=== PATIENT | male | born 1940 | race Caucasian/White ===

== ENCOUNTER → 2017-04-21 07:06 | Outpatient (CLI) | payer MEDICARE, SELFPAY ==
--- NOTE | 2017-04-21 07:12 | CT_ITS ---
STUDY: CT ABDOMEN AND PELVIS WITH CONTRAST REASON FOR EXAM: Male, 76 years old. Left lower quadrant pain and swelling following coughing. Ventral hernia. RADIATION DOSAGE (If Supplied By Facility): CTDIvol = ( 18.28 ) mGy, DLP = ( 1311.05 ) mGycm TECHNIQUE: Transaxial images were obtained from the dome of the diaphragm to the symphysis pubis with oral contrast. 100mL ml of Isovue 300 contrast was administered. Sagittal and coronal images were reconstructed. Individualized dose optimization techniques were used for this CT. COMPARISON: Comparison is made with prior study dated December 04, 2015. FINDINGS: Stable mild degree of increased markings at the lung bases suggestive of scarring. Scattered calcified granulomas in the right lower lobe. A dual-chamber pacemaker is seen. Normal liver. There are surgical clips in the gallbladder fossa consistent with a prior cholecystectomy. There are multiple benign calcified granulomata of the spleen. Normal pancreas. Normal bilateral adrenal glands. Normal right kidney. Normal left kidney. Normal visualized stomach. Normal small intestine. There are multiple colonic diverticula consistent with diverticulosis. There is a 2.9 cm rounded fat containing density in the antimesenteric side of the peritoneal fat adjacent to the sigmoid colon in the left hemipelvis. There is also evidence of a 1.5 cm rounded density with peripheral calcification along the antimesenteric side of the sigmoid colon. This may represent epiploic appengitis.. The appendix is visualized and appears normal. There is diffuse atherosclerotic calcification of the abdominal aorta. 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 This measures 3.5 cm in transverse dimension. This is essentially unchanged. Normal inferior vena cava. Normal retroperitoneum. Normal urinary bladder. There are prostatic calcifications. Small bilateral inguinal hernias containing fat. Normal osseous structures. CT/Abdomen/Pelvis WITH Contrast IMPRESSION: Stable examination. The previously seen calculus at the base of the urinary bladder is not seen at this time. Electronically Signed: Ricardo Chase MD at 9:44 EST Tel [phone], Service support ,
[2017-04-21 07:50] LABS: CREATININE FINGERSTICK 1.2 mg/dL (0.70-1.30); EGFR FINGERSTICK > 60.0000 mL/min (>60)
== END ==
PROVIDERS: Family Provider Family Medicine Geriatric Medicine; PCP Family Medicine Geriatric Medicine; Visit Provider Family Medicine Geriatric Medicine
DX: K43.9 Ventral hernia without obstruction or gangrene (principal)
CPT/HCPCS: 74177; Q9967

== ENCOUNTER → 2017-06-07 08:53 | Outpatient (CLI) | payer MEDICARE, SELFPAY ==
[2017-06-07 13:24] LABS: Absolute Lymphocyte Count 1.33 X10^3/ul (0.83-4.51); Absolute Neutrophil Count 3.7 X10^3/uL (2.0-7.7); Basophil# 0.03 X10^3/uL; Basophil% 0.5 % (0-1); Eosinophils% 1.7 % (0-5); Hematocrit 44.6 % (40-54); Hemoglobin 14.6 g/dl (13.0-16.5); Lymphocyte # 1.33 X10^3/ul (4.0); Mean Corp Hgb Conc 32.7 g/gl (32-36); Mean Corpuscular Hgb 30.2 pg (27.0-32.0); Mean Corpuscular Volume 92.1 fL (80-94); Mean Platelet Vol. 10.4 fl (6.2-12.0); Monocyte# 0.64 X10^3/uL; Monocyte% 11.1 % (0-10); Neutrophil # 3.65 X10^3/uL (2.7-7.7); Neutrophil % 63.2 % (47-70); Platelet Count 188 K/mm3 (150-450); RBC Distribution Width CV 14.3 % (11.6-14.6); RBC Distribution Width SD 46.8 fl (35.1-43.9); Red Blood Count 4.84 M/mm3 (4.6-6.2); White Blood Count 5.8 K/mm3 (4.4-11.0)
[2017-06-07 13:36] LABS: POSITIVE COUNT NO; POSITIVE DIFFERENTIAL NO; POSITIVE MORPHOLOGY NO
[2017-06-07 13:54] LABS: ALB/GLOB Ratio 1.2 RATIO (0.9-2.4); AST(SGOT) 20 U/L (15-37); Alanine Aminotransfer ALT/SGPT 28 U/L (16-61); Albumin, Serum 3.5 g/dL (3.2-5.0); Alkaline Phosphatase 58 U/L (45-117); Anion Gap 7 (5-15); BUN 11 mg/dL (7-18); Calcium,Total 8.7 mg/dL (8.5-10.1); Chloride 104 mmol/L (98-107); Cholesterol 112 mg/dL (200); Creatinine, Serum 0.85 mg/dL (0.70-1.30); EST Glomerular Filtration Rate 93 mL/min (>60); Est Glom Filt Rate - Afr Amer 113 mL/min (>60); Globulin 2.8 g/dL (2.2-4.2); Glucose 100 mg/dL (74-106); High Density Lipoprotein 56 mg/dL; Potassium 4.7 mmol/L (3.5-5.1); Protein, Total 6.3 g/dL (6.4-8.2); Sodium Level 140 mmol/L (136-145); Thyroid Stim Hormone (TSH) 0.87 uIU/mL (0.358-3.74); Triglycerides 81 mg/dL; Very Low Density Lipoprotein 16 mg/dL (5-40)
== END ==
PROVIDERS: Family Provider Family Medicine Geriatric Medicine; PCP Family Medicine Geriatric Medicine; Visit Provider Family Medicine Geriatric Medicine
DX: E11.9 Type 2 diabetes mellitus without complications (principal); E23.6 Other disorders of pituitary gland; E78.4 Other hyperlipidemia; I10 Essential (primary) hypertension
CPT/HCPCS: 36415; 80053; 80061; 84403; 84443; 85025

== ENCOUNTER → 2017-12-06 11:40 | Outpatient (CLI) | payer MEDICARE, SELFPAY ==
[2017-12-06 12:35] LABS: Absolute Lymphocyte Count 1.35 X10^3/ul (0.83-4.51); Absolute Neutrophil Count 3.8 X10^3/uL (2.0-7.7); Basophil# 0.03 X10^3/uL; Basophil% 0.5 % (0-1); Eosinophil# 0.13 X10^3/uL; Eosinophils% 2.3 % (0-5); Hemoglobin 14.6 g/dl (13.0-16.5); Lymphocyte # 1.35 X10^3/ul (4.0); Lymphocyte % 23.4 % (19-41); Mean Corp Hgb Conc 32.4 g/gl (32-36); Mean Corpuscular Hgb 29.8 pg (27.0-32.0); Mean Corpuscular Volume 91.8 fL (80-94); Mean Platelet Vol. 10.4 fl (6.2-12.0); Monocyte# 0.45 X10^3/uL; Monocyte% 7.8 % (0-10); Neutrophil # 3.78 X10^3/uL (2.7-7.7); Neutrophil % 65.5 % (47-70); Platelet Count 213 K/mm3 (150-450); RBC Distribution Width CV 13.6 % (11.6-14.6); White Blood Count 5.8 K/mm3 (4.4-11.0)
[2017-12-06 12:36] LABS: POSITIVE COUNT NO; POSITIVE DIFFERENTIAL NO; POSITIVE MORPHOLOGY NO
[2017-12-06 13:10] LABS: ALB/GLOB Ratio 1.2 RATIO (0.9-2.4); AST(SGOT) 19 U/L (15-37); Alanine Aminotransfer ALT/SGPT 26 U/L (16-61); Albumin, Serum 3.4 g/dL (3.2-5.0); Alkaline Phosphatase 67 U/L (45-117); Anion Gap 8 (5-15); BUN 11 mg/dL (7-18); BUN/Creat Ratio 11.7 RATIO (10-20); Calcium,Total 8.6 mg/dL (8.5-10.1); Chloride 104 mmol/L (98-107); Cholesterol 159 mg/dL (200); Creatinine, Serum 0.94 mg/dL (0.70-1.30); EST Glomerular Filtration Rate 82 mL/min (>60); Est Glom Filt Rate - Afr Amer 100 mL/min (>60); Globulin 2.8 g/dL (2.2-4.2); Glucose 164 mg/dL (74-106); High Density Lipoprotein 48 mg/dL; PSA,Total - Annual Screen 1.05 ng/mL (0.00-4.00); Potassium 4.4 mmol/L (3.5-5.1); Protein, Total 6.2 g/dL (6.4-8.2); Sodium Level 138 mmol/L (136-145); Thyroid Stim Hormone (TSH) 1.77 uIU/mL (0.358-3.74); Triglycerides 139 mg/dL; Very Low Density Lipoprotein 28 mg/dL (5-40)
[2017-12-06 13:11] LABS: Vitamin D,25 Hydroxy 20.8 ng/mL (29.95-100.01)
== END ==
PROVIDERS: Family Provider Family Medicine Geriatric Medicine; PCP Family Medicine Geriatric Medicine; Visit Provider Family Medicine Geriatric Medicine
DX: E11.9 Type 2 diabetes mellitus without complications (principal); I10 Essential (primary) hypertension; E78.4 Other hyperlipidemia; E23.6 Other disorders of pituitary gland; E55.9 Vitamin D deficiency, unspecified; Z12.5 Encounter for screening for malignant neoplasm of prostate
CPT/HCPCS: 36415; 80053; 80061; 82306; 84153; 84403; 84443; 85025; G0103

== ENCOUNTER → 2018-03-08 07:35 | Outpatient (CLI) | payer MEDICARE, SELFPAY ==
[2018-02-27 08:59] VITALS: BMI 35.8
--- NOTE | 2018-03-08 07:36 | ECHOD_ITS ---
Reason For Study: S/P CABG Procedure This was a 2D Doppler, Color Flow transthoracic echocardiogram. Exam performed in department. Left Ventricle Normal LV size. Moderate concentric left ventricular hypertrophy. Moderate global left ventricular systolic dysfunction. The estimated ejection fraction is 40 %. There is mild to moderate global hypokinesis of the left ventricle. Mitral Valve There is moderate mitral annular calcification. Mild-Moderate (1-2+) eccentric mitral valve insufficiency. Tricuspid Valve Normal tricuspid valve. Mild (1+) tricuspid valve insufficiency. Pulmonary artery systolic pressure is 35 mmHg. Aortic Valve Trisinus/trileaflet aortic valve. Pulmonic Valve Normal pulmonic valve. Great Vessels Normal aortic root. Pericardium/Pleural No pericardial effusion. MMode/2D Measurements & Calculations LVIDd: 4.9 cm IVSd: 1.2 cm LVOT diam: 2.0 cm LVIDs: 4.3 cm LVPWd: 1.3 cm LVOT area: 3.2 cm2 RVDd: 4.2 cm FS: 12.3 % Ao root diam: 3.7 cm LAV(MOD-bp): 50.3 ml LVAd ap4: 39.3 cm2 LAV(MOD-bp) Indexed: 21.7 ml/m2 EDV(MOD-sp4): 138.0 ml LAV(MOD-sp2): 62.3 ml EDV(sp4-el): 145.5 ml LAV(MOD-sp4): 40.2 ml LVAs ap4: 28.4 cm2 ESV(MOD-sp4): 81.8 ml ESV(sp4-el): 85.3 ml EF(MOD-sp4): 40.7 % EF(sp4-el): 41.3 % SV(MOD-sp4): 56.1 ml SV(sp4-el): 60.1 ml LA A4 area: 16.4 cm2 LA dimension(2D): 4.2 cm RA A4 area: 14.4 cm2 Time Measurements MV dec time: 0.23 sec Doppler Measurements & Calculations MV E max hira: 93.2 cm/sec Lat Peak E' Hira: 8.1 cm/sec Med Peak E' Hira: 4.5 cm/sec MV A max hira: 147.9 cm/sec E/E' lat: 11.5 E/E' med: 20.6 MV E/A: 0.63 Ao V2 max: 243.9 cm/sec LV V1 max: 116.1 cm/sec SV(LVOT): 101.6 ml Ao max P.8 mmHg LV V1 max P.4 mmHg Ao V2 mean: 181.0 cm/sec LV V1 mean P.0 mmHg Ao mean P.2 mmHg LV V1 mean: 81.5 cm/sec Ao V2 VTI: 67.6 cm LV V1 VTI: 31.8 cm KWAN(I,D): 1.5 cm2 KWAN(V,D): 1.5 cm2 PA V2 max: 112.2 cm/sec TR max hira: 277.6 cm/sec TR max P.9 mmHg Interpretation Summary Normal LV size. Moderate concentric left ventricular hypertrophy. Moderate global left ventricular systolic dysfunction. The estimated ejection fraction is 40 %. There is mild to moderate global hypokinesis of the left ventricle. Mild-Moderate (1-2+) eccentric mitral valve insufficiency. Mild (1+) tricuspid valve insufficiency. Pulmonary artery systolic pressure is 35 mmHg. Ordering Physician: Marlon Yen Referring Physician: MOR ALVARADO Performed By: Tiffanie Rodriguez RDCS
--- OUTSIDE RECORDS SUMMARY | 2018-04-24 00:47 | XMS RPT_ITS ---
:1940 Author Organization OHIP Care Team Providers Name Role Phone Marlon Yen Attending Unavailable Yovana, Marlon Referring Unavailable Yusef, Mor Chi Primary Care Unavailable Yovana, Marlon Consulting Unavailable Yusef, Mor Chi Attending Unavailable Yusef, Mor Chi Primary Care Unavailable Yusef, Mor Chi Referring Unavailable Yusef, Mor Chi Attending Unavailable Yusef, Mor Chi Primary Care Unavailable Lyndsey Ceballos Attending Unavailable Bre Martínez Attending Unavailable Yusef, Mor Chi Referring Unavailable Yusef, Mor Chi Primary Care Unavailable Yusef, Mor Chi Attending Unavailable Yusef, Mor Chi Primary Care Unavailable Yovana, [place] Attending Unavailable Yusef, Mor Chi Referring Unavailable Yovana, [place] Attending Unavailable Yovana, [place] Referring Unavailable Yusef, Mor Chi Primary Care Unavailable PROBLEMS PROBLEMS DATE TYPE CONDITION / CODE ATTENDING STATUS SOURCE 03/08/2018 Unknown I25.10 - Marlon Yen Active [facility] Atherosclerotic heart [facility] disease of [facility] coronary artery Repository without angina pectoris / I25.10(ICD-10) 12/06/2017 Unknown E11.9 - Type 2 Yusef, Mor Chi Active [facility] diabetes mellitus [facility] without complications Hospital / E11.9(ICD-10) Repository 12/06/2017 Unknown 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, 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 / Hospital E23.6(ICD-10) Repository 12/06/2017 Unknown E55.9 - Vitamin D Yusef, Mor Chi Active [facility] deficiency, Community unspecified / Hospital E55.9(ICD-10) Repository 12/06/2017 Unknown E78.4 - Other Yusef, Mor Chi Active [facility] hyperlipidemia / Community E78.4(ICD-10) Hospital Repository 12/06/2017 Unknown I10 - Essential Yusef, Mor Chi Active [facility] (primary) Community hypertension / Hospital I10(ICD-10) Repository 12/06/2017 Unknown Z12.5 - Encounter for Yusef, Mor Chi Active [facility] screening for [facility] malignant neoplasm of Hospital prostate / Repository Z12.5(ICD-10) PROCEDURES PROCEDURES No Procedure Records FoundRESULTS RESULTS ECHOCARDIOGRAM COMPLETE Observed: 03/08/2018 Status: F Source: [facility] 1:51 PM [facility] REPOSITORY [facility] Cardi[facility] Services [address] [place] [id number] Echo Complete 03/08/18 0758 MR#: [id number] Acct: [id number] Name: SERVANDO TRUONG Rep #: [id number] : 1940 77 From: Marlon Yen MD Attending Dr: Marlon Yen MD Status: REG CLI Ordering Dr: Marlon Yen MD Date: 03/08/18 Location: [facility] Sex: M C Admitted: Reason For Study: S/P CABG Procedure This was a 2D Doppler, Color Flow transthoracic echocardiogram. Exam performed in department. Left Ventricle Normal LV size. Moderate concentric left ventricular hypertrophy. Moderate global left ventricular systolic dysfunction. The estimated ejection fraction is 40 %. There is mild to moderate global hypokinesis of the left ventricle. Mitral Valve There is moderate mitral annular calcification. Mild-Moderate (1-2+) eccentric mitral valve insufficiency. Tricuspid Valve Normal tricuspid valve. Mild (1+) tricuspid valve insufficiency. Pulmonary artery systolic pressure is 35 mmHg. Aortic Valve Trisinus/trileaflet aortic valve. Pulmonic Valve Normal pulmonic valve. Great Vessels Normal aortic root. Pericardium/Pleural No pericardial effusion. MMode/2D Measurements AND Calculations LVIDd: 4.9 cm IVSd: 1.2 cm LVOT diam: 2.0 cm LVIDs: 4.3 cm LVPWd: 1.3 cm LVOT area: 3.2 cm2 RVDd: 4.2 cm FS: 12.3 % Ao root diam: 3.7 cm LAV(MOD-bp): 50.3 ml LVAd ap4: 39.3 cm2 LAV(MOD-bp) Indexed: 21.7 ml/m2 EDV(MOD-sp4): 138.0 ml LAV(MOD-sp2): 62.3 ml EDV(sp4-el): 145.5 ml LAV(MOD-sp4): 40.2 ml LVAs ap4: 28.4 cm2 ESV(MOD-sp4): 81.8 ml ESV(sp4-el): 85.3 ml EF(MOD-sp4): 40.7 % EF(sp4-el): 41.3 % SV(MOD-sp4): 56.1 ml SV(sp4-el): 60.1 ml LA A4 area: 16.4 cm2 LA dimension(2D): 4.2 cm RA A4 area: 14.4 cm2 Time Measurements MV dec time: 0.23 sec Doppler Measurements AND Calculations MV E max hira: 93.2 cm/sec Lat Peak E' Hira: 8.1 cm/sec Med Peak E' Hira: 4.5 cm/sec MV A max ihra: 147.9 cm/sec E/E' lat: 11.5 E/E' med: 20.6 MV E/A: 0.63 Ao V2 max: 243.9 cm/sec LV V1 max: 116.1 cm/sec SV(LVOT): 101.6 ml Ao max P.8 mmHg LV V1 max P.4 mmHg Ao V2 mean: 181.0 cm/sec LV V1 mean P.0 mmHg Ao mean P.2 mmHg LV V1 mean: 81.5 cm/sec Ao V2 VTI: 67.6 cm LV V1 VTI: 31.8 cm KWAN(I,D): 1.5 cm2 KWAN(V,D): 1.5 cm2 PA V2 max: 112.2 cm/sec TR max hira: 277.6 cm/sec TR max P.9 mmHg Interpretation Summary Normal LV size. Moderate concentric left ventricular hypertrophy. Moderate global left ventricular systolic dysfunction. The estimated ejection fraction is 40 %. There is mild to moderate global hypokinesis of the left ventricle. Mild-Moderate (1-2+) eccentric mitral valve insufficiency. Mild (1+) tricuspid valve insufficiency. Pulmonary artery systolic pressure is 35 mmHg. Ordering Physician: Marlon Yen Referring Physician: MOR HOLBROOK Performed By: Tiffanie Rodriguez RDCS 03/08/18 7680 Date Marlon Yen MD CC: Marlon Yen MD; Mor Holbrook MD Date Dictated: 03/08/18 0758 Date Transcribed: 03/08/18 1351 Telephone Maintainer: Signed CARDIOLOGY VISIT Observed: 02/27/2018 Status: F Source: [facility] REPORT 9:[address] [place] [address] OFFICE VISIT Date of Service: 02/27/18 MR#: [id number] Acct: [id number] Name: SERVANDO TRUONG Rep #: [id number] : 1940 Provider: Marlon Yen MD Age/Sex: 77/M Location: [facility] Status: Signed [facility] Chief Complaint: Follow-up visit Details: SERVANDO TRUONG, is a 77 M who presents to the office today for a cardiovascular follow-up. He has a history of coronary artery disease with bypass surgery in 2013 where he had an RAMOS to the LAD, SVG sequential to the first obtuse marginal and second obtuse marginal, hypertension, hyperlipidemia and postoperatively atrial fibrillation. He also has a history of diabetes. From a cardiac standpoint, patient is doing well. He does not have any chest discomfort/heaviness/tightness. He admits he needs to exercise more. He does occasionally have SOB with exertion but does not feel that this is any worse than before. He does not have any worsening symptoms of shortness of breath. He denies any PND. He does not have any orthopnea. He does not have any symptoms of congestive heart failure. He does not have any palpitations that he is aware of. He does occasionally have dizziness, these do not last long. He does not have any near-syncope or syncope. He does not have any lower extremity edema. He does not have any symptoms of claudication. He underwent stress testing in December 2016 during which no evidence of ischemia was noted. His physical exam demonstrates clear lung arriaza regular rate and rhythm and no pedal edema. Intake Vital Signs02/27/18 Height 5 ft 11 in 02/27/18 Weight: 257 lb 02/27/18 Body Mass Index (BMI) 35.8 02/27/18 Blood Pressure 132/78 H H 02/27/18 Blood Pressure Location Lt brachial Intake Visit Reasons: 6 M Core Sucker Required: No Accompanied by: none Is patient in pain?: No Allergies No Known Allergies Allergy (Verified 02/27/18 08:59) Medications Glimepiride [Amaryl] 4 mg PO BID 09/06/13 [History Confirmed 02/27/18] Lisinopril [Zestril] 5 mg PO DAILY 09/06/13 [History Confirmed 02/27/18] aspirin 81 mg tablet,delayed release 81 mg PO QDAY tab 06/26/17 [History Confirmed 02/27/18] nitroglycerin 0.4 mg sublingual tablet 0.4 mg SUBLINGUAL Q5M PRN 06/26/17 [History Confirmed 02/27/18] atorvastatin 40 mg tablet PO 30 Days #30 06/27/17 [History Confirmed 02/27/18] metoprolol tartrate 25 mg tablet PO 30 Days #30 06/27/17 [History Confirmed 02/27/18] cilostazol 50 mg tablet 50 mg PO ONCE tab 02/27/18 [History Confirmed 02/27/18] pioglitazone 45 mg tablet 45 mg PO DAILY 02/27/18 [History Confirmed 02/27/18] [facility] Medical History Peripheral vascular disease, unspecified (Chronic) Hypothyroidism, unspecified (Chronic) Controlled type 2 diabetes mellitus (Chronic) CAD (coronary artery disease) (Chronic) HLD (hyperlipidemia) (Chronic) HTN (hypertension) (Chronic) Paroxysmal ventricular tachycardia (Chronic) Atherosclerotic heart disease of [place] coronary artery without angina pectoris (Chronic) Paroxysmal atrial fibrillation (Chronic) Cardiomyopathy (Chronic) Shortness of breath (Chronic) Surgical History Presence of aortocoronary bypass graft (Chronic) History of cholecystectomy (Resolved) Family History Mother No problems noted. Father No problems noted. Social History Smoking Status: Former smoker alcohol intake: former year quit: 2007 substance use type: does not use caffeine: Yes Type: coffee Number of servings: 5 what type of physical activity do you participate in: none seatbelt use: always do you feel safe at home: Yes ROS Const Const: Negative for fatigue, weakness, night sweats, excessive sweating, frequent falls, headache(s) or daytime sleepiness Eyes Eyes: Negative for loss of peripheral vision, transient loss of vision, blind spots, double vision or blurry vision ENT ENT: Negative for headache(s), dizziness, balance problems, Nosebleed/epistaxis, tongue swelling or lip swelling Cardio Chest Pain: No Palpitations: No Edema: Bilateral Muscle aches with walking: None Resp Respiratory: Negative for SOB at rest, SOB orthopnea\SOB lying down, Cough, paroxysmal nocturnal dyspnea or SOB with activity GI GI: Negative nausea, vomiting, heartburn, black,tarry stools or bright, red blood in stools : Negative for hematuria Musc Musc: Negative for balance problems, muscle aches/ myalgia, muscle weakness or joint pain Skin Skin: Negative non-healing lesions, unusual bruising or rash Neuro Neuro: Negative for weakness, frequent falls, headache(s), double vision, dizziness, lightheadedness, orthostatic symptoms, blurry vision or lack of coordination Ankur Hematologic/Lymphatic: Negative for easy bruising or easy bleeding Endo Endo: Negative for fatigue, excessive sweating, cold intolerance, heat intolerance, increased thirst/drinking or hair loss Psych Psych: Negative for anxiety or depression Allergy Allergy/Immunology: Negative for throat swelling, Negative for tongue swelling, Negative for hives, Negative for rash, Negative for lip swelling Cardiology Exam Const Appearance: cooperative, healthy appearing, well developed, well groomed and no acute distress Nutritional Appearance: well nourished and average body habitus Orientation: alert, awake and oriented x3 Head Head: normal to inspection, normocephalic and atraumatic Ears: hearing grossly normal bilaterally and external ears normal Nose: external nose normal, nasal mucous membranes and turbinates normal, nares normal, septum normal, no nasal discharge Face and Sinus: face symmetric Mouth: oral mucosae normal, tongue normal, oropharynx normal and moist mucous membranes Teeth and gingiva: dentition normal Throat: posterior oropharynx normal, tonsils normal and uvula midline Eyes General: appearance normal, both eyes and all related structures Eyelids: eyelids normal Conjunctivae: conjunctivae normal Pupils: PERRL, normal by confrontation and accommodation normal EOM: EOM intact bilaterally Neck Neck: normal visual inspection, trachea midline and no JVD JVD: +5 Carotids: normal carotid upstroke and bounding pulses Chest Chest inspection: normal inspection of the chest, symmetric chest movement and normal respiratory effort Auscultation: Bilateral: Clear to Auscultation Cardio Palpation: normal PMI Rate: regular rate Rhythm: regular rhythm Heart sounds: S1 normal, S2 normal and normal, physiologic split S2; negative rub, gallop or murmur GI GI: normal to inspection, soft, no hepatosplenomegaly and bowel sounds present Neuro General: alert, awake, oriented x3, no focal sensory deficit, gait normal and moves all extremities Skin Skin: no rashes or lesions noted Extremities Pulses: Normal: Right Femoral Pulse, Left Femoral Pulse, Right Dorsalis Pedis Pulse, Left Dorsalis Pedis Pulse, Right Posterior Tibial Pulse, Left Posterior Tibial Pulse, Right Radial Pulse, Left Radial Pulse Lower Extremity Edema: None: Bilateral Musculoskel Musculoskeletal: No joint tenderness Psych Psychological: normal affect Assessment AND Plan 1. Presence of aortocoronary bypass graft Z95.1 09/09/2013 CABG X3: RAMOS to LAD, SVG to OM1 and SVG to OM2 @ [facility] Plan He is status post coronary artery bypass grafting. He has not had any angina. His last stress test did not demonstrate any evidence of ischemia. The plan will be for him to continue his current medical therapy without making any changes. He does have evidence of ischemic cardiomyopathy and my recommendation will be for us to repeat his echocardiogram to reassess his left ventricular function. It was estimated to be 37% on his last evaluation 2. Essential hypertension I10 Plan He does have a history of hypertension which is well controlled on the current medical therapy with the lisinopril as well as the metoprolol. He will continue the above medicines. 3. Pure hypercholesterolemia E78.00 Plan He does have a history of hyperlipidemia and his most recent lipid profile demonstrated a total cholesterol 159, LDL of 83, and HDL of 48. No other changes will be made. He will remain on the same dose of his statin. Plan Detail Other Orders Orders: Follow Up 6 Months (mmm) Coding Level of Care Code Off vis,est,level 3 Diagnoses Presence of aortocoronary bypass graft Z95.1 Essential hypertension I10 Hypertension type: essential hypertension Pure hypercholesterolemia E78.00 Hyperlipidemia type: pure hypercholesterolemia Coding Level of Care Code Off vis,est,level 3 Diagnoses Presence of aortocoronary bypass graft Z95.1 Essential hypertension I10 Hypertension type: essential hypertension Pure hypercholesterolemia E78.00 Hyperlipidemia type: pure hypercholesterolemia 02/27/18 0914 <Electronically signed by Marlon Yen MD> Date Marlon Yen MD Cosigner Signature: Date (if applicable) CC: Mor Holbrook MD CBC W/DIFF, AUTOMATED Collected: 12/06/2017 Status: F Source: [facility] 11:42 AM [facility] REPOSITORY TYPE CODE TESTS RESULT OUT OF RANGE REFERENCE UNITS LAB L100.1000 4.4-11.0 K/mm3 Normal WBC 5.8 LAB L100.1200 4.6-6.2 M/mm3 Normal RBC 4.90 LAB L100.1300 13.0-16.5 g/dl Normal HGB 14.6 LAB L100.1400 40-54 % Normal HCT 45.0 LAB L100.1500 80-94 fL Normal MCV 91.8 LAB L100.1600 27.0-32.0 pg Normal MCH 29.8 LAB L100.1700 32-36 g/gl Normal MCHC 32.4 LAB L100.1810 11.6-14.6 % Normal RDW CV 13.6 LAB L100.1820 35.1-43.9 fl High RDW SD 45.0 LAB L100.1900 150-450 K/mm3 Normal PLT 213 LAB L100.2000 6.2-12.0 fl Normal MPV 10.4 LAB L100.2100 47-70 % Normal NEUT% 65.5 LAB L100.2200 19-41 % Normal LY% 23.4 LAB L100.2300 0-10 % Normal MONO% 7.8 LAB L100.2400 0-5 % Normal EO% 2.3 LAB L100.2500 0-1 % Normal BASO% 0.5 LAB L100.2550 0.0-0.9 % Normal IM GRAN % 0.500 Result Comment: IG% - Immature Granulocytes (promyelocytes, myelocytes and metamyelocytes) > 1% indicates that a LEFT SHIFT is Present. LAB L100.2620 2.0-7.7 X10 3/uL Normal Absolute Neut 3.8 LAB L100.2720 0.83-4.51 X10 3/ul Normal Absolute Lymph 1.35 Performed By: #### L100.0100 #### [facility] [address] [facility] [place], [address] COMPREHENSIVE METABOLIC Collected: 12/06/2017 Status: F Source: [facility] 11:42 AM [facility] REPOSITORY TYPE CODE TESTS RESULT OUT OF RANGE REFERENCE UNITS LAB L501.0100 74-106 mg/dL High GLU 164 Result Comment: Fasting Glucose result greater than or equal to 126 mg/dL suggests DIABETES MELLITUS per A.D.A. criteria. Please note revised GLUCOSE reference range effective 2017. LAB L501.1000 7-18 mg/dL Normal BUN 11 LAB L501.1100 0.70-1.30 mg/dL Normal CREAT,SERUM 0.94 Result Comment: The validity of the calculated GFR AND GFRAA in patients over 70 years has not been determined. Clinical correlation is essential. LAB L501.1110 >60 mL/min Normal EST GFR 82 Result Comment: Non- GFR Calc LAB L501.1115 >60 mL/min Normal EST GFR - AA 100 Result Comment: GFR Calc LAB L501.1300 10-20 RATIO Normal BUN/CRE 11.7 LAB L501.1500 6.4-8.2 g/dL Low T PROT 6.2 LAB L501.1800 3.2-5.0 g/dL Normal ALB 3.4 LAB L501.1950 2.2-4.2 g/dL Normal GLOB 2.8 LAB L501.2000 0.9-2.4 RATIO Normal A/G 1.2 LAB L501.2200 8.5-10.1 mg/dL CA Normal 8.6 LAB L501.4100 15-37 U/L Normal AST 19 LAB L501.4305 45-117 U/L Normal ALK P 67 LAB L501.4405 16-61 U/L Normal ALT 26 LAB L501.4600 0.20-1.00 mg/dL T Normal BILI 0.80 LAB L501.5300 136-145 mmol/L NA Normal 138 LAB L501.5600 3.5-5.1 mmol/L K Normal 4.4 LAB L501.5900 98-107 mmol/L CL Normal 104 LAB L501.6100 21.0-32.0 mmol/L Normal CO2 26.0 LAB L501.6200 5-15 Normal GAP 8 Performed By: #### L500.4050, L500.4100, L501.9520, L501.9910 #### [facility] [address] [place], [address] LIPID PROFILE Collected: 12/06/2017 Status: F Source: [facility] 11:42 AM [facility] REPOSITORY TYPE CODE TESTS RESULT OUT OF RANGE REFERENCE UNITS LAB L501.4900 200 mg/dL Normal CHOL 159 Result Comment: <200 mg/dL Desirable 200-240 mg/dL Borderline >240 mg/dL High Risk LAB L501.5000 mg/dL Normal TRIG 139 Result Comment: The drugs N-Acetylcysteine and Metamizole may falsely depress this assay. Serum Triglycerides Reference Interval Normal <150 mg/dL Borderline high 150 - 199 mg/dL High 200 - 499 mg/dL Very High > or = 500 mg/dL LAB L501.6400 mg/dL Normal HDL 48 Result Comment: The drugs N-Acetylcysteine and Metamizole may falsely depress this assay. Reference Range HDL <40 mg/dL Low HDL Cholesterol HDL >or= 60 mg/dL High HDL Cholesterol LAB L501.6500 0-130 mg/dL Normal LDL 83 LAB L501.6600 5-40 mg/dL Normal VLDL 28 Performed By: #### L500.4050, L500.4100, L501.9520, L501.9910 #### [facility] [address] [place], [place], [id number] THYROID STIM HORMONE Collected: 12/06/2017 Status: F Source: [facility] ([facility]) 11:42 AM [facility] REPOSITORY TYPE CODE TESTS RESULT OUT OF RANGE REFERENCE UNITS LAB L501.9520 0.358-3.74 uIU/mL Normal TSH 1.77 Performed By: #### L500.4050, L500.4100, L501.9520, L501.9910 #### [facility] [address] [place], [place], [id number] PSA,TOTAL - ANNUAL Collected: 12/06/2017 Status: F Source: [facility] SCREEN 11:42 AM [facility] REPOSITORY TYPE CODE TESTS RESULT OUT OF RANGE REFERENCE UNITS LAB L501.9910 0.00-4.00 ng/mL Normal PSA,TOT 1.05 SCREEN Result Comment: This test was performed using the TPSA assay method for the e[employer] chemistry system. Values obtained with different assay methods cannot be used interchangably. When changing PSA assays in the course of monitoring a patient, additional sequential testing should be carried out to confirm baseline values. Performed By: #### L500.4050, L500.4100, L501.9520, L501.9910 #### [facility] [address] [place], [place], [address] VITAMIN D,25 HYDROXY Collected: 12/06/2017 Status: F Source: [facility] 11:42 AM [facility] REPOSITORY TYPE CODE TESTS RESULT OUT OF REFERENCE UNITS RANGE LAB L506.1000 29.95-100.01 ng/mL Low Vitamin D 20.8 25-OH Result Comment: Vitamin D 25(OH) Status Range Deficiency <20 ng/mL (50nmol/L) Insuffciency 20 - 30 ng/mL (50 - 75 nmol/L) Sufficiency 30 - 100 ng/mL (75 - 250 nmol/L) Toxicity >100 ng/mL (>250 nmol/L) Performed By: #### L506.1000, L509.3000 #### [facility] [address] [place], [address] TESTOSTERONE, SERUM TOTAL Collected: 12/06/2017 Status: F Source: [facility] 11:42 AM [facility] REPOSITORY TYPE CODE TESTS RESULT OUT OF REFERENCE UNITS RANGE LAB L509.3000 ng/dL Testosterone Normal 430.78 Result Comment: NORMAL REFERENCE RANGES MALE AGE <50 123.06 - 813.86 ng/dL MALE AGE >50 89.98 - 780.10 ng/dL FEMALE PREMENOPAUSE AGE 21 - 60 9.01 - 47.94 ng/dL FEMALE POSTMENOPAUSE AGE 45 - 89 <7.00 - 45.62 ng/dL REFERENCE RANGE AND METHODOLOGY CHANGED 03/15/2017 Performed By: #### L506.1000, L509.3000 #### [facility] [address] [place], [address] CARDIOLOGY VISIT Observed: 06/27/2017 Status: F Source: [facility] REPORT 11:09 AM [facility] REPOSITORY [facility] [address] [place] [address] OFFICE VISIT Date of Service: 06/27/17 MR#: [id number] Acct: [id number] Name: SERVANDO TRUONG Rep #: [id number] : 1940 Provider: Bre Martínez Age/Sex: 76/M Location: [facility] Status: Signed HPI HPI Details: SERVANDO TRUONG, is a 76 M who presents to the office today for a cardiovascular follow-up. He has a history of coronary artery disease with bypass surgery in 2013 where he had an RAMOS to the LAD, SVG sequential to the first obtuse marginal and second obtuse marginal, hypertension, hyperlipidemia and postoperatively atrial fibrillation. He also has a history of diabetes. From a cardiac standpoint, patient is doing well. He does not have any chest discomfort/heaviness/tightness. He admits he needs to exercise more. He does occasionally have SOB with exertion but does not feel that this is any worse than before. He does not have any worsening symptoms of shortness of breath. He denies any PND. He does not have any orthopnea. He does not have any symptoms of congestive heart failure. He does not have any palpitations that he is aware of. He does occasionally have dizziness, these do not last long. He does not have any near-syncope or syncope. He does not have any lower extremity edema. He does not have any symptoms of claudication. Intake Vital Signs06/27/17 Height 5 ft 11 in 06/27/17 Weight: 246 lb 06/27/17 Body Mass Index (BMI) 34.2 06/27/17 Blood Pressure 138/84 06/27/17 Blood Pressure Location Lt brachial Intake Visit Reasons: 6 M Core Sucker Required: No Accompanied by: None Is patient in pain?: No Allergies No Known Allergies Allergy (Verified 06/27/17 09:09) Medications Cilostazol [Pletal] 50 mg PO BIDAC 09/06/13 [History Confirmed 06/26/17] Glimepiride [Amaryl] 4 mg PO BID 09/06/13 [History Confirmed 06/26/17] Lisinopril [Zestril] 5 mg PO DAILY 09/06/13 [History Confirmed 06/26/17] Pioglitazone [Actos] 45 mg PO DAILY 09/06/13 [History Confirmed 06/26/17] Ondansetron [Zofran Odt] 4 mg PO Q8H PRN PRN #10 tab 12/04/15 [Rx] Oxycodone HCl/Acetaminophen [Percocet 5/325] 1 tab PO Q6H PRN PRN #10 tab 12/04/15 [Rx] Hydrocodone/Acetaminophen [Register 5-325 Tablet] 1 ea PO Q4H PRN PRN #30 tab 03/21/16 [Rx] aspirin 81 mg tablet,delayed release 81 mg PO QDAY tab 06/26/17 [History Confirmed 06/26/17] nitroglycerin 0.4 mg sublingual tablet 0.4 mg SUBLINGUAL Q5M PRN 06/26/17 [History Confirmed 06/26/17] atorvastatin 40 mg tablet PO 30 Days #30 06/27/17 [History Confirmed 06/27/17] metoprolol tartrate 25 mg tablet PO 30 Days #30 06/27/17 [History Confirmed 06/27/17] Ejection fraction %: 35 to 39 PFSH Medical History Peripheral vascular disease, unspecified (Chronic) Hypothyroidism, unspecified (Chronic) Controlled type 2 diabetes mellitus (Chronic) CAD (coronary artery disease) (Chronic) HLD (hyperlipidemia) (Chronic) HTN (hypertension) (Chronic) Paroxysmal ventricular tachycardia (Chronic) Atherosclerotic heart disease of [place] coronary artery without angina pectoris (Chronic) Paroxysmal atrial fibrillation (Chronic) Cardiomyopathy (Chronic) Shortness of breath (Chronic) Surgical History Presence of aortocoronary bypass graft (Chronic) History of cholecystectomy (Resolved) Family History Mother No problems noted. Father No problems noted. Social History Smoking Status: Former smoker alcohol intake: former year quit: 2007 substance use type: does not use caffeine: Yes Type: coffee Number of servings: 5 what type of physical activity do you participate in: none seatbelt use: always do you feel safe at home: Yes ROS Const Const: Negative for weakness, fatigue, fever(s) or headache(s) Eyes Eyes: Negative for blind spots, loss of peripheral vision or transient loss of vision ENT ENT: Positive for dizziness; negative for headache(s), tinnitus or Nosebleed/epistaxis Cardio Chest Pain: No Palpitations: No Edema: None Muscle aches with walking: None Resp Respiratory: Positive for SOB with activity; negative for SOB at rest, SOB orthopnea\SOB lying down or Cough GI GI: Negative nausea, vomiting, heartburn or vomiting blood/hematemesis : Negative for hematuria Musc Musc: Negative for muscle aches/ myalgia Neuro Neuro: Positive for dizziness; negative for weakness, headache(s), near syncope, syncope, lightheadedness or orthostatic symptoms Ankur Hematologic/Lymphatic: Negative for easy bleeding Endo Endo: Negative for fatigue Cardiology Exam Const Appearance: cooperative, no acute distress and well developed Orientation: alert, awake and oriented x3 Head Head: normocephalic and atraumatic Mouth: moist mucous membranes Eyes General: appearance normal, both eyes and all related structures Conjunctivae: conjunctivae normal Pupils: PERRL EOM: EOM intact bilaterally Neck Neck: normal visual inspection, no lymphadenopathy and no JVD Carotids: Negative bruit Neck Mass: Negative Neck mass Chest Chest inspection: normal inspection of the chest and symmetric chest movement Auscultation: Bilateral: Clear to Auscultation Cardio Palpation: normal PMI Rate: regular rate Rhythm: regular rhythm Heart sounds: S1 normal and S2 normal; negative rub, gallop or murmur GI GI: normal to inspection, soft, no hepatosplenomegaly and bowel sounds present; negative tender Neuro General: alert, awake, oriented x3, CN's II-XI intact bilaterally and moves all extremities Extremities Pulses: Normal: Right Radial Pulse, Left Radial Pulse, Diminished: Right Posterior Tibial Pulse, Left Posterior Tibial Pulse Lower Extremity Edema: None: Bilateral Psych Psychological: normal affect Supplemental Info Stress test in 2017 was negative for ischemia, rate dependent bundle branch block noted, global reduction in ejection fraction suggestive of cardiomyopathy. Echocardiogram in 2017 demonstrated normal LV size, postoperative septal motion, estimated ejection fraction 37%. Mild aortic stenosis. When compared to previous LV function has declined. Assessment AND Plan 1. 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 We recommend that they continue with current aggressive medical management and risk factor modification. 2. Essential hypertension I10 Plan - JOSE F Soto Blood pressure is well controlled on current medications, we do not recommend any changes at this time. 3. Pure hypercholesterolemia E78.00; E78.0 Plan - JOSE F Soto Recent lipid profile demonstrates total cholesterol 112, HDL 56, LDL 40. This is managed by his primary care doctor. Will not make any adjustments. Plan Detail Additional Comments - JOSE F Soto The above patient was discussed with Dr. Yen, he agrees with plan of care. Thank you for allowing us to participate in patient's plan of care, if you have any questions please do not hesitate to call. This note was generated using a voice recognition system and there may be incorrect words, spelling or punctuation errors that were not noted when reviewing the office note prior to saving. 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 transplanted heart: chilkat heart Essential hypertension I10 Hypertension type: essential hypertension Pure hypercholesterolemia E78.00; E78.0 Hyperlipidemia type: pure hypercholesterolemia 06/27/17 0957 <Electronically signed by Bre KOHLER> Date Bre KOHLER 06/27/17 1109<Electronically signed by Marlon Yen MD> Cosigner Signature: Date (if applicable) Marlon Yen MD CC: Mor Holbrook MD CBC W/DIFF, AUTOMATED Collected: 06/07/2017 Status: F Source: [place] 8:54 AM [facility] REPOSITORY TYPE CODE TESTS RESULT OUT OF RANGE REFERENCE UNITS LAB L100.1000 4.4-11.0 K/mm3 Normal WBC 5.8 LAB L100.1200 4.6-6.2 M/mm3 Normal RBC 4.84 LAB L100.1300 13.0-16.5 g/dl Normal HGB 14.6 LAB L100.1400 40-54 % Normal HCT 44.6 LAB L100.1500 80-94 fL Normal MCV 92.1 LAB L100.1600 27.0-32.0 pg Normal MCH 30.2 LAB L100.1700 32-36 g/gl Normal MCHC 32.7 LAB L100.1810 11.6-14.6 % Normal RDW CV 14.3 LAB L100.1820 35.1-43.9 fl High RDW SD 46.8 LAB L100.1900 150-450 K/mm3 Normal PLT 188 LAB L100.2000 6.2-12.0 fl Normal MPV 10.4 LAB L100.2100 47-70 % Normal NEUT% 63.2 LAB L100.2200 19-41 % Normal LY% 23.0 LAB L100.2300 0-10 % High MONO% 11.1 LAB L100.2400 0-5 % Normal EO% 1.7 LAB L100.2500 0-1 % Normal BASO% 0.5 LAB L100.2550 0.0-0.9 % Normal IM GRAN % 0.500 Result Comment: IG% - Immature Granulocytes (promyelocytes, myelocytes and metamyelocytes) > 1% indicates that a LEFT SHIFT is Present. LAB L100.2620 2.0-7.7 X10 3/uL Normal Absolute Neut 3.7 LAB L100.2720 0.83-4.51 X10 3/ul Normal Absolute Lymph 1.33 Performed By: #### L100.0100 #### [facility] [address] [place], [place], [id number] TESTOSTERONE, SERUM TOTAL Collected: 06/07/2017 Status: F Source: [place] 8:54 AM [facility] REPOSITORY TYPE CODE TESTS RESULT OUT OF REFERENCE UNITS RANGE LAB L509.3000 ng/dL Testosterone Normal 434.18 Result Comment: NORMAL REFERENCE RANGES MALE AGE <50 123.06 - 813.86 ng/dL MALE AGE >50 89.98 - 780.10 ng/dL FEMALE PREMENOPAUSE AGE 21 - 60 9.01 - 47.94 ng/dL FEMALE POSTMENOPAUSE AGE 45 - 89 <7.00 - 45.62 ng/dL REFERENCE RANGE AND METHODOLOGY CHANGED 03/15/2017 Performed By: #### L509.3000 #### [facility] [address] [place], [place], [address] COMPREHENSIVE METABOLIC Collected: 06/07/2017 Status: F Source: [facility] 8:54 AM [facility] REPOSITORY TYPE CODE TESTS RESULT OUT OF RANGE REFERENCE UNITS LAB L501.0100 74-106 mg/dL Normal GLU 100 Result Comment: Fasting Glucose result from 100 to 125 mg/dL suggests IMPAIRED HOMEOSTASIS per A.D.A. criteria. Please note revised GLUCOSE reference range effective 2017. LAB L501.1000 7-18 mg/dL Normal BUN 11 LAB L501.1100 0.70-1.30 mg/dL Normal CREAT,SERUM 0.85 Result Comment: The validity of the calculated GFR AND GFRAA in patients over 70 years has not been determined. Clinical correlation is essential. LAB L501.1110 >60 mL/min Normal EST GFR 93 Result Comment: Non- GFR Calc LAB L501.1115 >60 mL/min Normal EST GFR - AA 113 Result Comment: GFR Calc LAB L501.1300 10-20 RATIO Normal BUN/CRE 13.0 LAB L501.1500 6.4-8.2 g/dL Low T PROT 6.3 LAB L501.1800 3.2-5.0 g/dL Normal ALB 3.5 LAB L501.1950 2.2-4.2 g/dL Normal GLOB 2.8 LAB L501.2000 0.9-2.4 RATIO Normal A/G 1.2 LAB L501.2200 8.5-10.1 mg/dL CA Normal 8.7 LAB L501.4100 15-37 U/L Normal AST 20 LAB L501.4305 45-117 U/L Normal ALK P 58 LAB L501.4405 16-61 U/L Normal ALT 28 Result Comment: Please note revised ALT reference range effective 2017. LAB L501.4600 0.20-1.00 mg/dL High T BILI 1.20 LAB L501.5300 136-145 mmol/L Normal NA 140 LAB L501.5600 3.5-5.1 mmol/L Normal K 4.7 LAB L501.5900 98-107 mmol/L Normal CL 104 LAB L501.6100 21.0-32.0 mmol/L Normal CO2 29.0 LAB L501.6200 5-15 Normal GAP 7 Performed By: #### L500.4050, L500.4100, L501.9520 #### [facility] [address] [place], [address] LIPID PROFILE Collected: 06/07/2017 Status: F Source: [place] 8:54 AM [facility] REPOSITORY TYPE CODE TESTS RESULT OUT OF RANGE REFERENCE UNITS LAB L501.4900 200 mg/dL Normal CHOL 112 Result Comment: <200 mg/dL Desirable 200-240 mg/dL Borderline >240 mg/dL High Risk LAB L501.5000 mg/dL Normal TRIG 81 Result Comment: The drugs N-Acetylcysteine and Metamizole may falsely depress this assay. Serum Triglycerides Reference Interval Normal <150 mg/dL Borderline high 150 - 199 mg/dL High 200 - 499 mg/dL Very High > or = 500 mg/dL LAB L501.6400 mg/dL Normal HDL 56 Result Comment: The drugs N-Acetylcysteine and Metamizole may falsely depress this assay. Reference Range HDL <40 mg/dL Low HDL Cholesterol HDL >or= 60 mg/dL High HDL Cholesterol LAB L501.6500 0-130 mg/dL Normal LDL 40 LAB L501.6600 5-40 mg/dL Normal VLDL 16 Performed By: #### L500.4050, L500.4100, L501.9520 #### [facility] [address] [place], [place], [address] THYROID STIM HORMONE Collected: 06/07/2017 Status: F Source: [place] (TSH) 8:54 AM [facility] REPOSITORY TYPE CODE TESTS RESULT OUT OF RANGE REFERENCE UNITS LAB L501.9520 0.358-3.74 uIU/mL Normal TSH 0.87 Performed By: #### L500.4050, L500.4100, L501.9520 #### [facility] [address] [place], [address] CREATININE FINGERSTICK Collected: 04/21/2017 Status: F Source: [place] 7:20 AM [facility] REPOSITORY TYPE CODE TESTS RESULT OUT OF RANGE REFERENCE UNITS LAB L9100.0210 0.70-1.30 mg/dL Normal CREATININE WB 1.2 LAB L9100.0220 >60 mL/min EGFR WB Normal > 60.0000 Performed By: #### L9100.0200 #### [facility] Point of Care [address] [place] [address] ABDOMEN/PELVIS WITH Observed: 04/21/2017 Status: F Source: [place] CONTRAST 7:12 AM [facility] REPOSITORY [facility] [address] [place] [address] Abdomen/Pelvis WITH Contrast MR#: [id number] Acct: [id number] Name: SERVANDO TRUONG Rep #: [id number] : 1940 M 76 From: Ricardo Chase MD PCP: Yusef REESE,Mor Morrison Status: REG CLI Study: Abdomen/Pelvis WITH Contrast Date of Exam: 04/21/17 Exam# [id number] Ordering Dr: Mor Holbrook MD STUDY: CT ABDOMEN AND PELVIS WITH CONTRAST REASON FOR EXAM: Male, 76 years old. Left lower quadrant pain and swelling following coughing. Ventral hernia. RADIATION DOSAGE (If Supplied By Facility): CTDIvol = ( 18.28 ) mGy, DLP = ( 1311.05 ) mGycm TECHNIQUE: Transaxial images were obtained from the dome of the diaphragm to the symphysis pubis with oral contrast. 100mL ml of Isovue 300 contrast was administered. Sagittal and coronal images were reconstructed. Individualized dose optimization techniques were used for this CT. COMPARISON: Comparison is made with prior study dated December 04, 2015. FINDINGS: Stable mild degree of increased markings at the lung bases suggestive of scarring. Scattered calcified granulomas in the right lower lobe. A dual-chamber pacemaker is seen. Normal liver. There are surgical clips in the gallbladder fossa consistent with a prior cholecystectomy. There are multiple benign calcified granulomata of the spleen. Normal pancreas. Normal bilateral adrenal glands. Normal right kidney. Normal left kidney. Normal visualized stomach. Normal small intestine. There are multiple colonic diverticula consistent with diverticulosis. There is a 2.9 cm rounded fat containing density in the antimesenteric side of the peritoneal fat adjacent to the sigmoid colon in the left hemipelvis. There is also evidence of a 1.5 cm rounded density with peripheral calcification along the antimesenteric side of the sigmoid colon. This may represent epiploic appengitis.. The appendix is visualized and appears normal. There is diffuse atherosclerotic calcification of the abdominal aorta. 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 This measures 3.5 cm in transverse dimension. This is essentially unchanged. Normal inferior vena cava. Normal retroperitoneum. Normal urinary bladder. There are prostatic calcifications. Small bilateral inguinal hernias containing fat. Normal osseous structures. CT/Abdomen/Pelvis WITH Contrast IMPRESSION: Stable examination. The previously seen calculus at the base of the urinary bladder is not seen at this time. Electronically Signed: Ricardo Chase MD at 9:44 EST Tel [phone], Service support , CC: Mor Holbrook MD Telephone Maintainer: Signed ALLERGIES ALLERGIES DATE TYPE / CODE NAME / CODE REACTION SEVERITY SOURCE 02/27/2018 Drug No Known Unknown [facility] Allergy/4160 Allergies/F00 Hospital 44494(SNOMED [id number](RXNOR Repository CT) M) ENCOUNTERS ENCOUNTERS ADMIT/DISCHARGE ACCOUNT ADMITTING ENCOUNTER LOCATION SOURCE NUMBER CLASS 03/08/2018 [id number] Ambulatory BMS[facility] [place] 1 [facility] 03/08/2018 [id number] Ambulatory [place] [address] ing:[facility] Repository 02/27/2018/ [id number] Ambulatory BMSBuilding:[facility] [place] 8 5 [facility] Rep[facility] 12/06/2017 [id number] Ambulatory [place] 3 [facility] ing:POLAB3 Repository 06/27/2017/ [id number] Ambulatory BMSBuilding:B [place] 8 6 [facility] 06/27/2017 [id number] Ambulatory BMSBuilding:B [place] 5 [facility] Rep[facility] 06/07/2017 [id number] Ambulatory [place] 0 [facility] ing:POLAB3 Repository 04/21/2017 [id number] Ambulatory [place] 0 [facility] ing:CT Repository PAYERS PAYERS ENCOUNTER GUARANTOR PAYER SUBSCRIBER SOURCE 03/08/2018 SERVANDO C Primary SERVANDO Judy [place] [id number] TR Insurance:HUMANA POWELLDOB: [address], MEDICARE PPOPolicy [id number] [address]Njq: Number: Repository [id number] (HP) Date:3227-18-93MM [address] [address]DP: 03/08/2018 Secondary NOT GIVENUNK [place] Insurance:SELF PAY [facility] Number: Effective Repository Date:2018-03-08 03/08/2018 SERVANDO C Primary SERVANDO C [place] [id number] TR Insurance:HUMANA POWELLDOB: [address], MEDICARE PPOPolicy [id number] [facility] [address]Ean: Number: Repository [id number] (HP) Date:1503-12-85XY [address]WP: 03/08/2018 Secondary NOT GIVENUNK [place] Insurance:SELF PAY [facility] Number: Effective Repository Date:2018-02-27 02/27/2018 SERVANDO C Primary SERVANDO C [place] [id number] TR Insurance:HUMANA POWELLDOB: [address], MEDICARE PPOPolicy [id number] [facility] [address]Ptt: Number: Repository [id number] (HP) Date:4096-07-01RP [address] [address]W: 02/27/2018 Secondary NOT GIVENUNK [place] Insurance:SELF PAY [facility] Number: Effective Repository Date:2018-02-27 12/06/2017 SERVANDO C Primary SERVANDO C [place] [id number] TR Insurance:HUMANA POWELLDOB: [address], MEDICARE PPOPolicy [id number] [facility] [address]Ojc: Number: Repository [id number] (HP) Date:3694-15-77[place] [address]WP: 12/06/2017 Secondary NOT GIVENUNK [place] Insurance:SELF PAY [facility] Number: Effective Repository Date:2017-12-06 06/27/2017 SERVANDO C Primary SERVANDO C [place] [id number] TR Insurance:HUMANA POWELLDOB: [place] [address], MEDICARE PPOPolicy [id number] [facility] [address]Qwg: Number: Repository [id number] (HP) Date:0939-50-63KG [address] [address]QZ: 06/27/2017 Secondary NOT GIVENUNK [place] Insurance:SELF PAY [facility] Number: Effective Repository Date:2017-03-06 06/27/2017 Servando C Primary Servando C Myah [id number] Tr Insurance:HUMANA PowellDOB: [place] [address] [place], MEDICARE PPOPolicy [id number] St[facility] [address]Tqk: Number: Repository [id number] (HP) Date:1541-40-47GF [address] [address]EL: 06/27/2017 Secondary NOT GIVENUNK [place] Insurance:SELF PAY [facility] Number: Effective Repository Date:2017-06-27 06/07/2017 Servando C Primary Servando C Myah [id number] Tr Insurance:HUMANA PowellDOB: [address], MEDICARE PPOPolicy [id number] [address]Hek: Number: Repository [id number] (HP) Date:0835-68-23BQ [address] [address]KH: 06/07/2017 Secondary NOT GIVENUNK [place] Insurance:SELF PAY [facility] Number: Effective Repository Date:2017-06-07 04/21/2017 Servando C Primary Servando C Myah [id number] Tr Insurance:HUMANA PowellDOB: [address], [id number] [address]Gkw: Number: Repository [id number] (HP) Date:0542-38-48[address] [address], [place] [address]JZ: 04/21/2017 Secondary NOT GIVENUNK [place] Insurance:SELF PAY [facility] Number: Effective Repository Date:2017-04-14
== END ==
PROVIDERS: Family Provider Family Medicine Geriatric Medicine; PCP Family Medicine Geriatric Medicine; Referring Provider Internal Medicine Cardiovascular Disease; Visit Provider Internal Medicine Cardiovascular Disease
DX: I25.10 Atherosclerotic heart disease of native coronary artery without angina pectoris (principal)
CPT/HCPCS: 93306

== ENCOUNTER 2018-04-28 07:13 | Emergency (ER) | payer MEDICARE, SELFPAY ==
[2018-02-27 08:59] VITALS: BMI 35.8
[2018-04-28 07:14] VITALS: BP 169/90; PULSE 66; RESP 18; TEMP 36.8; O2SAT 99; BMI 34.5
--- NOTE | 2018-04-28 07:24 | CT_ITS ---
STUDY: CT CHEST WITHOUT CONTRAST REASON FOR EXAM: Male, 77 years old. FALL ON ICE HITTING BACK. LEFT SIDED CHEST PAIN 3 DAYS AGO RADIATION DOSAGE (If Supplied By Facility): CTDIvol = ( 19.92 ) mGy, DLP = ( 955.77 ) mGycm TECHNIQUE: Transaxial imaging was performed without the administration of intravenous contrast material. Individualized dose optimization techniques were used for this CT. COMPARISON: None. FINDINGS: The lungs are normal. There is no demonstrated pleural abnormality. Heart size is normal. Sternal wires and mediastinal surgical clips compatible with prior CABG. There are multiple small lymph nodes within the mediastinum, which are normal in size and morphology most compatible with reactive lymph hyperplasia. Normal hilar regions. Normal unenhanced pulmonary arteries. There is atherosclerosis of the thoracic aorta with tortuosity. There are multi-level degenerative changes of the thoracic spine. Exaggerated thoracic kyphosis. There is anterior wedge compression involving T5 with sclerosis and spondylosis of the inferior endplate (chronic). Mildly exaggerated thoracic kyphosis. There are old right rib fractures. Cortical step-off of lateral left sixth rib on axial image 119 has relatively smooth margins but persistent fracture line is seen (age indeterminate). There is a cortical step-off with an obliquely oriented fracture of left lateral eighth rib (image 188). There are granulomatous calcifications of the liver and spleen. The adrenal glands are not focally enlarged. Atherosclerosis of the abdominal aorta with localized abdominal aortic aneurysm measuring up to 4.2 cm at the level of the JORDI. Displaced curvilinear calcification suggest possibility of calcified thrombus or dissection. This is not significantly changed since prior CT abdomen and pelvis of 04/21/2017. CT/Chest without Contrast IMPRESSION: 1. Acute appearing left lateral eighth rib fracture. Age indeterminate unhealed lateral left sixth rib fracture. 2. Old, healed right rib fractures. 3. Chronic appearing T5 compression fracture. Degenerative changes of the thoracic spine. 4. Abdominal aortic aneurysm as seen on prior CT. 5. Granulomatous calcifications. Electronically Signed: Edilson Joseph MD at 8:08 EST , Service support ,
--- NOTE | 2018-04-28 08:00 | ED.DCSUM_ITS ---
- ER Visit Summary Date of Service: 04/28/18 Chief Complaint: [Fall] History of Present Illness: The patient is a 77 M [presents to the emergency department with complaint of a fall that occurred about 2 days ago. Patient states he went out to his mailbox and slipped on the ice falling onto his back and left side. He denies striking his head or loss of consciousness. Patient is now complaining of left upper back pain. Patient complains of pain with movement and deep breath. No significant shortness of breath. He denies any neck pain. He denies any abdominal pain. Patient has been ambulatory.] Physical Examination: [HEENT-PERRLA, EOMI. Cranial nerves II through XII frank sly intact. TMs clear. Mucous membranes moist. No adenopathy. Cardiovascular-regular rate and rhythm without murmur or ectopy Lungs-clear to auscultation, chest wall stable without crepitus or subcu emphysema. Patient does have tenderness palpation over the posterior left ribs diffusely that reproduces his pain. There is no ecchymosis or bruising noted. Abdomen-normoactive bowel sounds, soft, nontender, no rebound or rigidity, no peritoneal signs. Extremities-intact ?4, normal range of motion, normal pulses, atraumatic] Test Results: [CT scan of the chest without contrast was obtained which showed fractures of rib 8 and 6 that appear to be new. There was no pneumothorax. Patient had an incidental finding of a T5 compression fracture that appeared old. Patient also with a abdominal aortic aneurysm measuring 4.2 cm which appears unchanged from prior CT.] Emergency Department Course and Treatment: [I made patient aware of all the findings on the CT scan and recommended that he follow-up with his primary care physician regarding the findings as the abdominal aortic aneurysm will need to be monitored with serial CAT scans.] Treatment Plan: [Patient will be dispensed an incentive spirometer and will be started on [place] for pain.] Disposition: Discharged home in stable condition. Patient advised to return if increasing shortness of breath, hemoptysis, fevers, or condition should worsen anyway. [] Impression: [Mechanical fall Left rib fractures #6 and 8.] This note was generated with [employer] dictation software. It may contain incorrect words, spelling, and punctuation that were not noted in review of the chart prior to signing ED Disposition - Plan for ED Patient: Referrals: Damián Holbrook Chi, MD [Primary Care Provider] -
--- NOTE | 2018-04-28 08:20 | DCINST.ED_ITS ---
ED Disposition - Plan for ED Patient: Instructions: ED Mechanical Fall, ED Fx Rib Prescriptions: Hydrocodone Bitart/Apap 5-325 [[place] 5MG-325MG] 1 tab PO Q4H PRN PRN 2 Days #20 tab PRN Reason: Pain Referrals: Damián Holbrook Chi, MD [Primary Care Provider] - 5-7 Days
[2018-04-28] MEDS: HYDROcodone Bitartrate/Apap 5/325 Tablet PO (08:28)
--- NOTE | 2018-04-28 08:30 | ED.RN ---
Gave pt incentive spirometer and gave instruction on usage. Pt acknowledged understanding and returned demonstration
== END 2018-04-28 08:34 | disposition home or self-care (01) ==
PROVIDERS: Emergency Provider Emergency Medicine; Family Provider Family Medicine Geriatric Medicine; PCP Family Medicine Geriatric Medicine
DX: S22.42XA Multiple fractures of ribs, left side, initial encounter for closed fracture (principal); W00.0XXA Fall on same level due to ice and snow, initial encounter; Y93.9 Activity, unspecified; Y92.008 Other place in unspecified non-institutional (private) residence as the place of occurrence of the external cause; Y99.9 Unspecified external cause status; I25.10 Atherosclerotic heart disease of native coronary artery without angina pectoris; I71.4 Abdominal aortic aneurysm, without rupture; E11.9 Type 2 diabetes mellitus without complications; Z79.84 Long term (current) use of oral hypoglycemic drugs; Z79.82 Long term (current) use of aspirin; Z79.899 Other long term (current) drug therapy; Z95.1 Presence of aortocoronary bypass graft
CPT/HCPCS: 71250; 99282

== ENCOUNTER → 2018-05-04 11:02 | Outpatient (CLI) | payer MEDICARE, SELFPAY ==
[2018-04-28 07:14] VITALS: BMI 34.5
[2018-05-04 13:09] LABS: Absolute Lymphocyte Count 1.39 X10^3/ul (0.83-4.51); Basophil# 0.03 X10^3/uL; Basophil% 0.6 % (0-1); Eosinophil# 0.13 X10^3/uL; Eosinophils% 2.6 % (0-5); Hematocrit 45.4 % (40-54); Hemoglobin 14.5 g/dl (13.0-16.5); Lymphocyte # 1.39 X10^3/ul (4.0); Lymphocyte % 27.5 % (19-41); Mean Corp Hgb Conc 31.9 g/gl (32-36); Mean Corpuscular Hgb 29.5 pg (27.0-32.0); Mean Corpuscular Volume 92.5 fL (80-94); Mean Platelet Vol. 10.2 fl (6.2-12.0); Monocyte% 9.9 % (0-10); Neutrophil % 59.2 % (47-70); Platelet Count 232 K/mm3 (150-450); RBC Distribution Width CV 13.7 % (11.6-14.6); Red Blood Count 4.91 M/mm3 (4.6-6.2); White Blood Count 5.1 K/mm3 (4.4-11.0)
[2018-05-04 13:10] LABS: POSITIVE COUNT NO; POSITIVE DIFFERENTIAL NO; POSITIVE MORPHOLOGY NO
== END ==
PROVIDERS: Family Provider Family Medicine Geriatric Medicine; PCP Family Medicine Geriatric Medicine; Visit Provider Family Medicine Geriatric Medicine
DX: K92.1 Melena (principal)
CPT/HCPCS: 36415; 85025

== ENCOUNTER → 2018-06-06 13:06 | Outpatient (CLI) | payer MEDICARE, SELFPAY ==
[2018-06-06 17:16] LABS: Absolute Lymphocyte Count 1.23 X10^3/ul (0.83-4.51); Absolute Neutrophil Count 2.6 X10^3/uL (2.0-7.7); Basophil# 0.03 X10^3/uL; Basophil% 0.7 % (0-1); Eosinophils% 2.3 % (0-5); Hematocrit 42.3 % (40-54); Hemoglobin 13.4 g/dl (13.0-16.5); Lymphocyte # 1.23 X10^3/ul (4.0); Lymphocyte % 28.7 % (19-41); Mean Corp Hgb Conc 31.7 g/gl (32-36); Mean Corpuscular Hgb 29.6 pg (27.0-32.0); Mean Corpuscular Volume 93.6 fL (80-94); Monocyte# 0.36 X10^3/uL; Monocyte% 8.4 % (0-10); Neutrophil # 2.56 X10^3/uL (2.7-7.7); Neutrophil % 59.7 % (47-70); Platelet Count 228 K/mm3 (150-450); RBC Distribution Width CV 14.4 % (11.6-14.6); RBC Distribution Width SD 47.9 fl (35.1-43.9); Red Blood Count 4.52 M/mm3 (4.6-6.2); White Blood Count 4.3 K/mm3 (4.4-11.0)
[2018-06-06 17:18] LABS: POSITIVE COUNT NO; POSITIVE DIFFERENTIAL NO; POSITIVE MORPHOLOGY NO
[2018-06-06 17:45] LABS: ALB/GLOB Ratio 1.3 RATIO (0.9-2.4); AST(SGOT) 40 U/L (15-37); Alanine Aminotransfer ALT/SGPT 36 U/L (16-61); Albumin, Serum 3.4 g/dL (3.2-5.0); Alkaline Phosphatase 79 U/L (45-117); Anion Gap 8 (5-15); BUN 9 mg/dL (7-18); Calcium,Total 8.4 mg/dL (8.5-10.1); Chloride 104 mmol/L (98-107); Cholesterol 97 mg/dL (200); EST Glomerular Filtration Rate 77 mL/min (>60); Est Glom Filt Rate - Afr Amer 93 mL/min (>60); Globulin 2.7 g/dL (2.2-4.2); Glucose 155 mg/dL (74-106); High Density Lipoprotein 48 mg/dL; Protein, Total 6.1 g/dL (6.4-8.2); Sodium Level 140 mmol/L (136-145); Thyroid Stim Hormone (TSH) 1.33 uIU/mL (0.358-3.74); Triglycerides 118 mg/dL; Very Low Density Lipoprotein 24 mg/dL (5-40)
== END ==
PROVIDERS: Family Provider Family Medicine Geriatric Medicine; PCP Family Medicine Geriatric Medicine; Visit Provider Family Medicine Geriatric Medicine
DX: E11.9 Type 2 diabetes mellitus without complications (principal); I10 Essential (primary) hypertension; E23.6 Other disorders of pituitary gland; E78.49 Other hyperlipidemia
CPT/HCPCS: 36415; 80053; 80061; 84403; 84443; 85025

== ENCOUNTER → 2018-06-11 09:29 | Outpatient (CLI) | payer MEDICARE, SELFPAY ==
--- NOTE | 2018-06-11 09:32 | US_ITS ---
PROCEDURES: ULTRASOUND AORTA REASON FOR EXAM: Male, 77 years old. Abdominal aortic aneurysm. TECHNIQUE: Ultrasound evaluation of the aorta was performed with real-time and static guillermo-scale imaging. Exam is severely limited by overlying bowel gas. COMPARISON: CT scan abdomen and pelvis/. FINDINGS: Aorta measures: Proximal obscured. Middle 2.4 cm. Distal 4.2 cm. Aorta measure transversely: Proximal obscured. Middle 2.6 cm. Distal 4.3 cm. Right iliac artery measures: Not visualized. Left iliac artery measures: Not visualized. On the 2018 CT scan, by my measurement, there was a distal aortic aneurysm which measured 4.2 x 4.0 cm. US/Aorta IMPRESSION: Aneurysmal dilatation of the distal abdominal aorta, measuring 4.2 x 4.3 cm. This is not significantly changed from the 2018 exam. No other visualized abnormalities. Study is severely limited by bowel gas. Electronically Signed: Ja Caal MD at 7:45 EDT , Service support ,
== END ==
PROVIDERS: Family Provider Family Medicine Geriatric Medicine; PCP Family Medicine Geriatric Medicine; Referring Provider Family Medicine Geriatric Medicine; Visit Provider Family Medicine Geriatric Medicine
DX: I71.4 Abdominal aortic aneurysm, without rupture (principal)
CPT/HCPCS: 76775

== ENCOUNTER → 2018-12-10 09:01 | Outpatient (CLI) | payer MEDICARE, SELFPAY ==
[2018-08-29 09:48] VITALS: BMI 34.5
[2018-12-10 12:28] LABS: Absolute Lymphocyte Count 1.23 X10^3/uL (0.83-4.51); Basophil# 0.05 X10^3/uL; Basophil% 0.8 % (0-1); Eosinophil# 0.11 X10^3/uL; Eosinophils% 1.8 % (0-5); Hematocrit 44.6 % (40-54); Hemoglobin 14.3 g/dL (13.0-16.5); Lymphocyte # 1.23 X10^3/ul (4.0); Lymphocyte % 20.6 % (19-41); Mean Corp Hgb Conc 32.1 g/dL (32-36); Mean Corpuscular Hgb 29.6 pg (27.0-32.0); Mean Corpuscular Volume 92.3 fL (80-94); Mean Platelet Vol. 10.1 fl (6.2-12.0); Monocyte# 0.51 X10^3/uL; Monocyte% 8.6 % (0-10); NRBC Flagged by Analyzer 0 % (0-5); Neutrophil # 4.02 X10^3/uL (2.7-7.7); Neutrophil % 67.5 % (47-70); Platelet Count 199 K/mm3 (150-450); RBC Distribution Width CV 13.8 % (11.6-14.6); RBC Distribution Width SD 46.7 fl (35.1-43.9); Red Blood Count 4.83 M/mm3 (4.6-6.2)
[2018-12-10 12:58] LABS: ALB/GLOB Ratio 1.2 RATIO (0.9-2.4); AST(SGOT) 19 U/L (15-37); Alanine Aminotransfer ALT/SGPT 24 U/L (16-61); Albumin, Serum 3.4 g/dL (3.2-5.0); Alkaline Phosphatase 86 U/L (45-117); Anion Gap 4 (5-15); BUN 12 mg/dL (7-18); BUN/Creat Ratio 12.7 RATIO (10-20); Calcium,Total 8.3 mg/dL (8.5-10.1); Chloride 106 mmol/L (98-107); Cholesterol 114 mg/dL (200); Creatinine, Serum 0.94 mg/dL (0.70-1.30); EST Glomerular Filtration Rate 82 mL/min (>60); Est Glom Filt Rate - Afr Amer 100 mL/min (>60); Globulin 2.8 g/dL (2.2-4.2); Glucose 119 mg/dL (74-106); High Density Lipoprotein 55 mg/dL; Potassium 4.2 mmol/L (3.5-5.1); Protein, Total 6.2 g/dL (6.4-8.2); Sodium Level 138 mmol/L (136-145); Thyroid Stim Hormone (TSH) 8.24 uIU/mL (0.358-3.74); Triglycerides 78 mg/dL; Very Low Density Lipoprotein 16 mg/dL (5-40)
== END ==
PROVIDERS: Family Provider Family Medicine Geriatric Medicine; PCP Family Medicine Geriatric Medicine; Visit Provider Family Medicine Geriatric Medicine
DX: E11.9 Type 2 diabetes mellitus without complications (principal); I10 Essential (primary) hypertension; E78.5 Hyperlipidemia, unspecified; E55.9 Vitamin D deficiency, unspecified
CPT/HCPCS: 36415; 80053; 80061; 82306; 84443; 85025

== ENCOUNTER → 2019-02-18 16:33 | Outpatient (CLI) | payer MEDICARE, SELFPAY ==
[2018-08-29 09:48] VITALS: BMI 34.5
--- NOTE | 2019-02-18 16:42 | RAD_ITS ---
STUDY: X-RAY - UNILATERAL RIBS ( RIGHT ) WITH CHEST REASON FOR EXAM: Male, 78 years old. Right-sided pain. History of multiple fractures of ribs 5 years ago. TECHNIQUE - RIBS: 4 view(s) of the ribs. TECHNIQUE - CHEST: Single AP portable view of the chest. COMPARISON: None. FINDINGS - RIBS: There is diffuse osteopenia. There is an acute fracture involving the lateral arch of the right eighth and ninth rib. There are multiple old right-sided rib fractures with callus formation along the lateral, posterolateral anterolateral arches fourth, fifth, sixth, seventh, ninth, and 10th rib. FINDINGS - CHEST: The lungs are normally expanded with bilateral basilar atelectasis. The remainder of the lungs are clear. There is no demonstrated pleural abnormality. Normal size heart. Midline sternotomy wires present. Normal mediastinum and kristy. Normal visualized pulmonary arteries. There is atherosclerotic calcification of the aortic arch with tortuosity. There are diffuse degenerative changes of the visualized thoracic spine. Multiple bilateral old rib fractures with callus formation noted. Right-sided ribs are described in detail as above. There is no demonstrated abnormality of the visualized soft tissue structures of the upper abdomen. RAD/Ribs Uni Min 3V w/PA Chest IMPRESSION: RIBS: Acute fractures involving the right-sided approximately eighth and ninth ribs. Underlying old fractures involving the bilateral ribs. CHEST: Bilateral basilar atelectasis otherwise no acute process identified. Electronically Signed: Maria Alejandra Valenzuela MD at 5:32 EST , Service support ,
== END ==
PROVIDERS: Family Provider Family Medicine Geriatric Medicine; PCP Family Medicine Geriatric Medicine; Referring Provider Family Medicine Geriatric Medicine; Visit Provider Family Medicine Geriatric Medicine
DX: R07.89 Other chest pain (principal)
CPT/HCPCS: 71101

== ENCOUNTER 2019-04-09 08:30 | Outpatient (RCR) | payer MEDICARE, SELFPAY ==
[2018-08-29 09:48] VITALS: BMI 34.5
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
--- NOTE | 2019-03-13 09:34 | HP.PTCOM_ITS ---
PT Communication Note 03/13/[address] Damián Holbrook MD , Thank you for the referral of Brian to [facility] for balance assessment after his recent falls. i have enclosed a copy of the results for your review. In summation, he scored well on the Sensory Organization Test. He scored slow on the anterior musculature in the Motor Control test. He scored low excursion in the forward direction on the Limits of Stability Test. He will meet with his evaluating therapist tomorrow to review appropriate plans and goals which will likely b 2x/week for up to 4 weeks to teach forward weight shifting ex, ankle strength, and general strength. Please contact me with any concerns. Sincerely, Buck Dempsey DPT, OCS, CSCS Contact Information
--- NOTE | 2019-03-15 10:14 | HP.PTREVAL ---
Damián Holbrook MD, It has been my pleasure to treat SERVANDO TRUONG over the last 3 visits for GAIT DIFFICULTY,FALLS. Please see the progress note below for an update on the physical therapy plan of care! Subjective: PATIENT REPORTS HE HASN'T HAD ANY FALLS OR NEAR FALLS FOR ABOUT 3 OR 4 WEEKS AGO NOW. RIBS ARE GETTING BETTER. HURTS WHEN HE COUGHS. Objective/Function: THIS PATIENT IS VERY PLEASANT AND COOPERATIVE TO WORK WITH. HE IS A GOOD CANDIDATE FOR PHYSICAL THERPAY PER POC BELOW. CASE CONFERENCE WITH COREY COMER DPT TODAY. PATIENT TOLERATED ALL EX'S WELL BUT REQUIRES A LOT OF CUEING TO PERFORM CORRECTLY. HE TENDS TO USE HIP STRATEGY BEFORE ANKLE STRATEGY TO MAINTAIN BALANCE. PATIENT HAS VERY POOR POSTURAL STRENGTH AND NEEDS A LOT OF CUEING TO TRY TO MAINTAIN GOOD POSTURE WITH THE EX'S. Plan Plan: Based on results, would recommend 2x/week x 3-4 to teach exercises for forward weight shift, anterior ankle strength, general ex for posture and leg musculature adn progress to I with HEP when safe. PATIENT IS AGREEABLE TO THIS POC. Goals Goal 1:: INDEP AND SAFE GAIT ON ALL SURFACES WITH LEAST ASSISTIVE DEVICE Goal Time Frame: 2-4 Weeks Goal 2:: INDEP HEP FOR CONTINUED IMPROVEMENT ONCE FORMAL PHYSICAL THERAPY CONCLUDES. Goal Time Frame: 2-4 Weeks Anticipated Interventions Patient/Client Instruction: Educate patient on: Condition, Plan of Care, Risk Factors, Benefits of Fitness Program For the Purpose of:: To improve self management Therapeutic Exercise to Include: Strength training, Balance training, Postural training, Flexibilty training, Gait and locomotor training, Dynamic Lumbar Stabilization For the Purpose of:: To improve muscle performance and motor function, To improve ability of physical actions for home/community/work/leisure, To improve gait and locomotor functions Please do not hesitate to contact me at [phone] by phone or if you have questions or concerns regarding this new plan of care! Sincerely, Cecilia Fang, PT, Cert MDT
--- NOTE | 2019-04-09 08:56 | HP.PTDCSUM ---
HP - PT D/C Summary It has been my pleasure to treat SERVANDO TRUONG under orders from Damián Holbrook MD, for the diagnosis of GAIT DIFFICULTY,FALLS for a total of 9 visit(s). Discharge Date: 04/09/19 Please see the following information for a summary of their discharge status. - Subjective Subjective: PATIENT REPORTS HE HAS BUILT OF SOME MUSCLES AND HE KNOWS IT HAS HELPED. 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 STATES THERAPY IS VERY EXPENSIVE FOR HIM. STATES HE IS THINKING ABOUT GETTING A MEMBERSHIP TO WALK ON THE [place] EARLY IN THE MORNINGS. DENIES ANY RECENT FALLS. - Pain RIGHT RIBS Pain Intensity (Out of 10): 0 - Objective Objective/Function: PATIENT WAS SEEN TODAY FOR RE-ASSESSMENT OF PROGRESS TOWARD THE SET PT GOALS AND THE NEED FOR FURTHER PHYSICAL THERAPY VS READINESS FOR DISCHARGE. PATIENT HAS IMPROVED WITH PT AND APPROPRIATE FOR DISCHARGE. THIS PT STRONGLY ENCOURAGED HEP COMPLIANCE FOR CONTINUED IMPROVEMENT. HIS NOW ABLE TO SLS ON EACH LEG FOR ABOUT 7 SEC. HE DEMO'S INDEP AND SAFE GAIT INTO PT WITHOUT ANY ASSISTIVE DEVICES OR LOB X > 300 FEET. - Goals Goal 1:: INDEP AND SAFE GAIT ON ALL SURFACES WITH LEAST ASSISTIVE DEVICE Goal Progress: Goal Met Goal 2:: INDEP HEP FOR CONTINUED IMPROVEMENT ONCE FORMAL PHYSICAL THERAPY CONCLUDES. Goal Progress: Goal Met - Plan Plan: D/C TO INDEP EX. PATIENT AGREEABLE. - D/C Information If there are questions or concerns regarding this patient's physical therapy, please feel free to call me at [phone]. Thank you for the referral of this patient. Sincerely, Cecilia Fang, PT, Cert MDT
== END 2019-04-09 19:00 | disposition home or self-care (01) ==
LOC: PT 08:30
PROVIDERS: Family Provider Family Medicine Geriatric Medicine; PCP Family Medicine Geriatric Medicine; Referring Provider Family Medicine Geriatric Medicine; Visit Provider Family Medicine Geriatric Medicine
DX: R26.9 Unspecified abnormalities of gait and mobility (principal)
CPT/HCPCS: 97110; 97162; 97164; 97530; 97750

== ENCOUNTER → 2019-04-19 06:09 | Outpatient (CLI) | payer MEDICARE, SELFPAY ==
[2019-04-16 08:44] VITALS: BMI 33.3
--- NOTE | 2019-04-19 06:09 | ECHOD_ITS ---
Reason For Study: S/P CABG Procedure This was a 2D Doppler, Color Flow transthoracic echocardiogram. The study was technically difficult. Contrast injection was performed. Exam performed in department. Left Ventricle Normal LV size. Moderate concentric left ventricular hypertrophy. The estimated ejection fraction is 25 %. Severe segmental systolic dysfunction (see wall motion). Septal motion consistent with IVCD. Stage 1 diastolic dysfunction. Anterio-Basal: Normal. Mid-Lateral : Normal. Lateral-Basal: Normal. Mid-anteroseptal : Severely Hypokinetic. Basal inferoseptal: Hypokinetic. Mid-Inferior: Severely Hypokinetic. Mid-Anterior : Hypokinetic. [place] : Severely Hypokinetic. Right Ventricle Normal RV size. Normal systolic function. Atria Normal left atrium. Normal right atrium. Mitral Valve There is moderate mitral annular calcification. Mild (1+) eccentric mitral valve insufficiency. Tricuspid Valve Normal tricuspid valve. Moderate (2+) tricuspid valve insufficiency. Pulmonary artery systolic pressure is 44 mmHg. Aortic Valve Trisinus/trileaflet aortic valve. Mild focal aortic valve calcification. Peak aortic valve gradient 22 mmHg. Mean aortic valve gradient 10 mmHg. Mild to moderate aortic stenosis. Pulmonic Valve The pulmonic valve is not well visualized. Great Vessels Normal aortic root. The pulmonary artery is normal size. Normal inferior vena cava. Pericardium/Pleural No pericardial effusion. Medication 22 gauge I.V. with prn adaptor inserted into right arm. Diluted definity 3ml given slow IV push to enhance endocardial definition. MMode/2D Measurements & Calculations LVIDd: 4.5 cm IVSd: 1.5 cm LVOT diam: 2.0 cm LVIDs: 4.1 cm LVPWd: 1.4 cm RVDd: 4.3 cm FS: 7.5 % LVOT area: 3.3 cm2 Ao root diam: 3.8 cm LAV(MOD-bp): 70.4 ml LVAd ap4: 46.7 cm2 ACS: 0.73 cm LAV(MOD-bp) Indexed: 30.9 ml/m2 EDV(MOD-sp4): 203.7 ml LA dimension: 4.7 cm LAV(MOD-sp2): 75.0 ml EDV(sp4-el): 208.6 ml LAV(MOD-sp4): 61.1 ml LVAs ap4: 40.3 cm2 ESV(MOD-sp4): 153.4 ml ESV(sp4-el): 158.3 ml EF(MOD-sp4): 24.7 % EF(sp4-el): 24.1 % SV(MOD-sp4): 50.2 ml SV(sp4-el): 50.3 ml LA A4 area: 19.5 cm2 RA A4 area: 15.3 cm2 Time Measurements MV dec time: 0.26 sec Doppler Measurements & Calculations MV E max hira: 94.9 cm/sec Lat Peak E' Hira: 4.5 cm/sec Med Peak E' Hira: 3.4 cm/sec MV A max hira: 142.3 cm/sec E/E' lat: 21.3 E/E' med: 28.3 MV E/A: 0.67 MV V2 max: 177.0 cm/sec MV P1/2t max hira: 112.6 cm/sec Ao V2 max: 234.9 cm/sec MV max P.6 mmHg MV P1/2t: 116.7 msec Ao max P.1 mmHg MV V2 mean: 89.6 cm/sec MV dec slope: 282.7 cm/sec2 Ao V2 mean: 142.2 cm/sec MV mean P.0 mmHg MVA(P1/2t): 1.9 cm2 Ao mean P.7 mmHg MV V2 VTI: 49.5 cm Ao V2 VTI: 48.1 cm MVA(VTI): 1.3 cm2 KWAN(I,D): 1.4 cm2 KAWN(V,D): 1.1 cm2 LV V1 max: 78.3 cm/sec SV(LVOT): 66.2 ml PA V2 max: 74.7 cm/sec LV V1 max P.5 mmHg LV V1 mean P.4 mmHg LV V1 mean: 54.6 cm/sec LV V1 VTI: 20.3 cm TR max hira: 310.1 cm/sec TR max P.5 mmHg Interpretation Summary Normal LV size. Moderate concentric left ventricular hypertrophy. The estimated ejection fraction is 25 %. Severe segmental systolic dysfunction (see wall motion). Stage 1 diastolic dysfunction. Mean aortic valve gradient 10 mmHg. Mild to moderate aortic stenosis. Mild (1+) eccentric mitral valve insufficiency. Contrast injection was performed. Compared to previous study, the left ventricular systolic function has worsened.. Ordering Physician: Marlon Yen Referring Physician: Damián Holbrook Chi Performed By: David Ko RCS
--- NOTE | 2019-04-19 10:47 | STRESSREP ---
Stress Test Report Exercise myocardial perfusion stress test. 78-year-old man with a history of coronary artery bypass surgery with a left internal mammary artery to the left anterior descending artery and saphenous vein graft to the obtuse marginal branch 1 and 2 as a sequential graft. Stress protocol: Resting EKG demonstrates normal sinus rhythm with a rate of 82 bpm left bundle branch block pattern is noted. The patient was exercised according to regular [place] protocol for a total duration of 3 minutes and 30 seconds the maximum heart rate attained was 142 bpm which was 100% maximum predicted heart rate the maximum workload was 4.6 metabolic equivalents. Patient maintained sinus rhythm throughout the recording. At rest left bundle branch block changes were noted which continued throughout. The resting blood pressure was 122/86 with a final blood pressure of 128/82 the maximum blood pressure was 154/80 mmHg. Myocardial perfusion protocol. 14.7 mCi of technetium 99m sestamibi was injected at rest. The patient exercised according to regular [place] protocol for 3-1/2 minutes at peak exercise 44.5 mCi of technetium 99m sestamibi was injected stress images were obtained stress and rest images were reconstructed and compared in the short axis vertical and horizontal long axis. Gated images were also obtained Perfusion SPECT analysis: Review of the images demonstrate a medium size defect noted in the mid anterior wall and apex as well as a medium-sized defect noted in the mid inferior wall. 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 Gated SPECT analysis: The gated ejection fraction demonstrates a dilated ventricle with globally reduced function estimated at 18%. Conclusion: Abnormal exercise myocardial perfusion stress test at a low workload with evidence of inferior ischemia. Previous anterior infarct noted. Global reduction ejection fraction at 18%. Left bundle branch block noted.
== END ==
PROVIDERS: PCP Family Medicine Geriatric Medicine; Referring Provider Internal Medicine Cardiovascular Disease; Visit Provider Internal Medicine Cardiovascular Disease
DX: I25.10 Atherosclerotic heart disease of native coronary artery without angina pectoris (principal); Z95.1 Presence of aortocoronary bypass graft
CPT/HCPCS: 78452; 93017; 93306; A9500; Q9957; A4216; C8929

== ENCOUNTER 2019-05-01 06:42 | Day surgery (SDC) | payer MEDICARE, SELFPAY ==
[2019-04-16 08:44] VITALS: BMI 33.3
--- NOTE | 2019-04-24 07:55 | RAD_ITS ---
STUDY: X-RAY CHEST REASON FOR EXAM: Male, 78 years old. Preoperative evaluation before heart catheterization. TECHNIQUE: Frontal and lateral views of the chest. COMPARISON: February 18, 2019 FINDINGS: Stable hyperexpansion with diffuse interstitial pattern and scarring in both bases, right greater than left. Healed granulomatous calcifications unchanged. Pleural thickening bilaterally unchanged. Stable cardiomegaly with sternotomy wires and changes of coronary artery bypass grafting. Normal mediastinum and kristy. Normal visualized pulmonary arteries. Normal visualized aortic arch and descending thoracic aorta. Normal visualized thoracic spine. Normal visualized ribs, clavicles, and shoulders. There is no demonstrated abnormality of the visualized soft tissue structures of the upper abdomen. RAD/Chest PA and Lateral IMPRESSION: Stable chest with no acute or active cardiopulmonary disease. Electronically Signed: Jesus Kc MD at 17:36 EST , Service support ,
[2019-04-24 08:28] LABS: Absolute Lymphocyte Count 1.28 X10^3/uL (0.83-4.51); Absolute Neutrophil Count 3.7 X10^3/uL (2.0-7.7); Basophil# 0.06 X10^3/uL; Eosinophil# 0.11 X10^3/uL; Eosinophils% 1.9 % (0-5); Hematocrit 45.8 % (40-54); Hemoglobin 14.9 g/dL (13.0-16.5); Lymphocyte # 1.28 X10^3/ul (4.0); Lymphocyte % 22.3 % (19-41); Mean Corp Hgb Conc 32.5 g/dL (32-36); Mean Corpuscular Hgb 29.9 pg (27.0-32.0); Mean Platelet Vol. 10.2 fl (6.2-12.0); Monocyte# 0.56 X10^3/uL; Monocyte% 9.8 % (0-10); NRBC Flagged by Analyzer 0 % (0-5); Neutrophil # 3.71 X10^3/uL (2.7-7.7); Neutrophil % 64.7 % (47-70); Platelet Count 206 K/mm3 (150-450); RBC Distribution Width CV 13.2 % (11.6-14.6); RBC Distribution Width SD 44.8 fl (35.1-43.9); Red Blood Count 4.98 M/mm3 (4.6-6.2); White Blood Count 5.7 K/mm3 (4.4-11.0)
[2019-04-24 08:56] LABS: Anion Gap 6 (5-15); BUN 13 mg/dL (7-18); BUN/Creat Ratio 12.3 RATIO (10-20); Calcium,Total 8.6 mg/dL (8.5-10.1); Chloride 104 mmol/L (98-107); Creatinine, Serum 1.06 mg/dL (0.70-1.30); EST Glomerular Filtration Rate 72 mL/min (>60); Est Glom Filt Rate - Afr Amer 87 mL/min (>60); Glucose 163 mg/dL (74-106); Potassium 4.3 mmol/L (3.5-5.1); Sodium Level 138 mmol/L (136-145)
[2019-04-30 08:43] VITALS: BMI 33.3
--- NOTE | 2019-05-01 08:52 | CL.D_ITS ---
Patient Name: SERVANDO TRUONG Study Date: 05/01/2019 Performing: Marlon Yen MD Ht: 70.86 inches 180 cm : 1940 Wt: 238.1 lbs 108 kg Age: 78 Gender: male BSA: 2.27 PROCEDURE(S) PERFORMED VC82-FYO/COR/LV/CABG CLINICAL PROFILE AND INDICATIONS Indications: Suspected CAD Heart Failure: None Stress/Imaging Date: 04/19/19tress Test with SPECT MPI: Positive Low Risk CAD Presentations: No Sxs, no angina. CONCLUSIONS Coronary artery disease, with moderate disease noted in the circumflex artery. Coronary bypass graft to the left internal mammary artery and LAD and circumflex systems are noted to be patent. Distal d isease noted in the circumflex artery system. Severe left ventricular systolic dysfunction out of pr oportion to extent of coronary disease RECOMMENDATIONS Optimize medical therapy and consider ICD DESCRIPTION OF PROCEDURE The patient arrived to the procedure lab. The risks and benefits of the procedure as well as a full d escription of our services here and current unavailability of surgical backup were fully explained to the patient and/or their significant other prior to the catheterization. The Timeout was completed, verifying the correct patient and procedure. The patient's procedural site was prepped and draped in the usual fashion. . Using a modified Seldinger technique, arterial access was obtained via the right femoral artery, a 5Fr sheath was inserted. Left Coronary Artery selective angiography was performed in multiple views using a 5 Fr. JL4 catheter. Right Coronary Artery selective angiography was then p erformed in multiple views using a 5 Fr. 3DRC (Gregor) catheter. Saphenous Vein graft to the OM 1an d OM2 selective angiography was performed in multiple views using a 5 Fr. AR MOD catheter. Left inter nal mammary artery graft to the LAD selective angiography was performed in multiple views using a 5 Fr. IM catheter. CORONARY ANGIOGRAPHY DOMINANCE: Left Dominant LEFT HEART ASSESSMENT Left Ventricular Ejection Fraction: by LV Gram 20 % Global Hypokinesis - Severe Depressed Left Ventricular systolic function LEFT MAIN: Angiographically normal LEFT ANTERIOR DESCENDING ARTERY: MID LAD: is occluded DIAGONAL 1: Proximal - 80 % Stenosis CIRCUMFLEX ARTERY: MID CIRC: 60 % Stenosis LT PDA: Left PDA: Proximal - 75 in small vessel % Stenosis RIGHT CORONARY ARTERY: No significant disease noted GRAFTS: RAMOS graft to the Mid LAD is patent Saphenous Vein graft to the 1st OM is patent Sequential graft to the OM1and OM2are patent COMPLICATIONS No Complications PROCEDURE MEDICATIONS Versed 1 mg IV Oxygen: 2 L/min via nasal cannula SUMMARY OF HEMODYNAMIC DATA Time AIR REST ECG 07:53:19 AO 114/77 (94) SA 08:12:50 LV 146/28, 39 08:36:18 LV 146/32, 45 08:36:25 Signed By Marlon Yen MD On 05/01/2019 8:52:06 AM Marlon Yen MD
== END 2019-05-01 14:06 | disposition home or self-care (01) ==
LOC: CLSP 06:43
PROVIDERS: PCP Family Medicine Geriatric Medicine; Referring Provider Internal Medicine Cardiovascular Disease; Visit Provider Internal Medicine Cardiovascular Disease
DX: I25.10 Atherosclerotic heart disease of native coronary artery without angina pectoris (principal); I25.5 Ischemic cardiomyopathy; I35.0 Nonrheumatic aortic (valve) stenosis; I71.4 Abdominal aortic aneurysm, without rupture; E11.9 Type 2 diabetes mellitus without complications; I10 Essential (primary) hypertension; E78.5 Hyperlipidemia, unspecified; I73.9 Peripheral vascular disease, unspecified; Z87.891 Personal history of nicotine dependence; Z95.1 Presence of aortocoronary bypass graft
CPT/HCPCS: 36415; 71046; 80048; 85025; 93459; 99152; 99153; J7040; Q9967; C1769